=== PATIENT | female | born 1985 | race Two or more races ===

== ENCOUNTER 2021-11-01 00:21 | Emergency (ER) | payer SELFPAY ==
[~2021-11-01] VITALS: Ht 154.9 cm; Wt 65.8 kg
[2021-11-01 02:16] LABS: Basophils # (auto) 0 10 ^3/uL (0-0.2); Basophils % (auto) 0.4 % (0.0-2.0); Eosinophils # (auto) 0 10 ^3/uL (0-0.8); Eosinophils % (auto) 0.1 % (0.0-7.0); Hematocrit 39.4 % (36.0-46.0); Hemoglobin 13.8 g/dL (12.2-16.2); Lymphocytes # (auto) 1.4 10 ^3/uL (0.4-5.4); Lymphocytes % (auto) 13.2 % (10.0-50.0); Mean Corpuscular Hemoglobin 32.4 pg (28.0-32.0); Mean Corpuscular Volume 92.6 fL (80.0-100.0); Monocytes # (auto) 0.5 10 ^3/uL (0-1.3); Monocytes % (auto) 4.3 % (0.0-12.0); Neutrophils # (auto) 8.8 10 ^3/uL (1.6-8.6); Red Blood Cells 4.26 10^6/uL (4.0-5.20); Red Cell Distribution Width 13.2 % (11.8-14.3); White Blood Cell 10.7 10^3/uL (4.4-10.8)
[2021-11-01 02:34] LABS: Albumin 4.3 g/dL (3.4-5.0); Calcium 9.4 mg/dL (8.5-10.1)
[2021-11-01 02:43] LABS: Bilirubin, Total 1.6 mg/dL (0.2-1.0); Total Protein 7.8 g/dL (6.4-8.2)
[2021-11-01] MEDS ORDERED: FOLIC ACID 1 MG TAB PO ONE (07:00)
[2021-11-01 08:22] LABS: Urine Bacteria NONE SEEN /hpf (None Seen); Urine Blood TRACE /uL (Negative); Urine Mucus FEW (None Seen); Urine Specific Gravity 1.035 (1.001-1.035); Urine WBC 11 /hpf (0 - 5)
[2021-11-01] MEDS ORDERED: CEPH-509 PO (09:07)
[2021-11-01 09:16] VITALS: BP 120/86
== END 2021-11-01 09:47 | disposition home or self-care (01) ==
LOC: ER 00:21
DX: O23.41 Unspecified infection of urinary tract in pregnancy, first trimester (principal); Z3A.01 Less than 8 weeks gestation of pregnancy
CPT/HCPCS: 36415; 76801; 76817; 80053; 81001; 83690; 84702; 85025; 93005